=== PATIENT | female | born 1985 | race Caucasian/White ===

== ENCOUNTER → 2018-11-21 | Outpatient (CLI) | payer BC ==
--- NOTE | 2018-11-22 09:03 | MM ---
Reason for exam: clinical finding. Baseline mammogram. History: Patient is nulliparous. Silicone gel implants in both breasts, 2013. Physical Findings: Nurse Summary: 1.5 x 2cm nodule in the left breast at 7 o'clock (nurse ts). MG Diag Mamm Implant LT w CAD CC and MLO view(s) were taken of the left breast. The breast tissue is extremely dense which could obscure a lesion on mammography. Central, slightly lower outer left breast focal asymmetry is seen 1.5-2.5cm from nipple. These results were verbally communicated with the patient and result sheet given to the patient on 11/21/18. ASSESSMENT: Incomplete: need additional imaging evaluation, BI-RAD 0 RECOMMENDATION: Ultrasound of the left breast. (palpable lower outer quadrant, lower inner quadrant)
--- NOTE | 2018-11-22 09:04 | USB ---
Reason for exam: additional evaluation requested from abnormal screening. History: Patient is nulliparous. Silicone gel implants in both breasts, 2013. US Breast Limited LT Left limited breast ultrasound including focal area of concern, retroareolar and axilla demonstrates a 0.9 x 1.2 x 0.3cm cystic lesion at 3 o'clock and a 2.0 x 1.8 x 1.0cm mixed lesion at 6 o'clock, increased through transmission, likely complicated cyst. These results were verbally communicated with the patient and result sheet given to the patient on 11/21/18. ASSESSMENT: Probably benign, BI-RAD 3 RECOMMENDATION: Ultrasound of the left breast in 6 months.
== END | disposition home or self-care (01) ==
LOC: RADMAMWWP 13:54
PROVIDERS: ATTEND Family Medicine
DX: R92.8 Other abnormal and inconclusive findings on diagnostic imaging of breast (principal); Z98.82 Breast implant status
CPT/HCPCS: 77065

== ENCOUNTER 2020-07-12 22:10 | Inpatient (IN) | payer BC ==
[2020-07-12] MEDS ORDERED: LACTATED RINGERS 1,000 ML IV ONE (22:45)
[2020-07-12] MEDS ORDERED: CITRIC ACID-SODIUM CITRATE 15 ML CUP PO ONE (22:45)
--- NOTE | 2020-07-12 23:04 | US ---
EXAMINATION TYPE: US OB limited DATE OF EXAM: 07/12/2020 COMPARISON: NONE CLINICAL HISTORY: positions . For position only EXAM PERFORMED: Transabdominal (TA) GESTATIONAL AGE / DATING No growth performed on today?s study per ordering physician SURVEY PRESENTATION: Breech HEART RATE: 115 bpm RHYTHM: Normal Results given to L&D at time of exam IMPRESSION: Limited exam shows a breech presentation. heart rate is 1:15.
[2020-07-12 23:06] LABS: Basophils % (A) 1 %; Eosinophils # (A) 0.1 k/uL (0-0.7); Eosinophils % (A) 1 %; HCT 35.7 % (34.0-46.0); HGB 11.6 gm/dL (11.4-16.0); Lymphocytes # (A) 2.4 k/uL (1.0-4.8); Lymphocytes % (A) 32 %; MCH 31.4 pg (25.0-35.0); MCHC 32.5 g/dL (31.0-37.0); MCV 96.5 fL (80.0-100.0); Mean Platelet Volume 7.9; Monocytes # (A) 0.5 k/uL (0-1.0); Monocytes % (A) 6 %; Neutrophils # (A) 4.4 k/uL (1.3-7.7); Neutrophils % (A) 59 %; Platelet Count 244 k/uL (150-450); RDW 12.3 % (11.5-15.5); WBC 7.5 k/uL (3.8-10.6)
--- NOTE | 2020-07-12 23:19 | P.HPOB ---
History of Present Illness H&P Date: 07/12/20 Chief Complaint: 7-6/7 weeks, breech presentation, spontaneous rupture of me mbranes The patient is a 35-year-old 2 para 0010 admitted at 37-6/7 weeks as established by first trimester ultrasound. She is admitted with documented breech presentation by bedside ultrasound with documented spontaneous rupture of membranes with clear fluid. Her has otherwise been uncomplicated and group B strep status is negative. On labor and delivery, all signs are reass uring, category 1 heart rate tracing. Obstetrical history: 2 para 0010 with one early miscarriage. Current statistics are listed in history of present illness. EDC of 2020 was established by first trimester ultrasound. Laboratory workup demonstrates a blood type of A+ with a negative antibody screen. Rubella status is immune. The remainder of the laboratory workup was within normal limits. She did undergo trisomy testing which was negative. One hour Glucola was initially elevated but followed by a normal three-hour glucose tolerance test. Group B strep status is negative. Gynecologic history: Unremarkable with no history of any infections to include STDs. Review of Systems Review of systems is confined to history of present illness. Past Medical History History of Any Multi-Drug Resistant Organisms: None Reported Smoking Status: Never smoker Medications and Allergies Allergies Allergy/AdvReac Type Severity Reaction Status Date / Time No Known Allergies Allergy Verified 07/12/20 22:19 Exam Intake and Output 07/12/20 07/12/20 07/13/20 14:59 22:59 06:59 Other: Weight 77 kg In general, this is a well-developed well-nourished female in no acute distress. Her heart has a regular rhythm and rate without murmur. Her lungs are clear to auscultation bilaterally in all tarango. Her abdomen is gravid, nondistended, has normal active bowel sounds, soft, nontender, and without any palpable masses aside from uterine fundus. Her extremities are without any cyanosis, clubbing, or edema and are nontender to palpation bilaterally. Digital cervical examination performed by the nurses demonstrates her cervix to be 1 cm dilated, 80% effaced, with the presentation high in the pelvis. Presentation is confirmed by bedside ultrasound to be breech. Results Result Diagrams: 07/12/20 22:52 Abnormal Lab Results - Last 24 Hours (Table) 07/12/20 Range/Units 22:52 RBC 3.70 L (3.80-5.40) m/uL Assessment and Plan (1) Breech presentation Current Visit: Yes Status: Acute Code(s): O32.1XX0 - MATERNAL CARE FOR BREECH PRESENTATION, UNSP SNOMED Code(s): 6209817 (2) Spontaneous rupture of amniotic membranes Current Visit: Yes Status: Acute Code(s): MYA9584 - SNOMED Code(s): 640249153 (3) Term Current Visit: Yes Status: Acute Code(s): Z34.90 - ENCNTR FOR SUPRVSN OF NORMAL , UNSP, UNSP TRIMESTER SNOMED Code(s): 66855297 Plan: The patient is admitted for primary low-transverse section. The risks and complications the procedure have been discussed and she has understood and agreed to proceed.
[2020-07-12] MEDS ORDERED: OXYTOCIN 10 UNIT/ML 1 ML VIAL ONE (23:22)
[2020-07-12] MEDS ORDERED: KETOROLAC 15 MG/ML 1 ML VIAL ONE (23:22)
[2020-07-12] MEDS ORDERED: MORPHINE SULFATE (PF) 0.3 MG/0.3 ML SYR ONE (23:22)
[2020-07-13] MEDS ORDERED: KETOROLAC 15 MG/ML 1 ML VIAL IVP PRN (00:14)
[2020-07-13] MEDS ORDERED: HYDROcodone/APAP 5-325MG 1 EACH TAB PO PRN (00:14)
[2020-07-13] MEDS ORDERED: diphenhydrAMINE 50 MG/ML 1 ML VIAL IVP PRN ×2 (00:14)
[2020-07-13] MEDS ORDERED: diphenhydrAMINE 25 MG CAP PO PRN (00:14)
[2020-07-13] MEDS ORDERED: HYDROcodone/APAP 7.5-325MG 1 EACH TAB PO PRN (00:14)
[2020-07-13] MEDS ORDERED: NALOXONE 0.4 MG/ML 1 ML VIAL IV PRN (00:14)
[2020-07-13] MEDS ORDERED: METOCLOPRAMIDE 5 MG/ML 2 ML VIAL IVP PRN (00:14)
[2020-07-13] MEDS ORDERED: diphenhydrAMINE 50 MG CAP PO PRN (00:14)
[2020-07-13] MEDS ORDERED: ONDANSETRON 4 MG/2 ML VIAL IVP PRN (00:14)
[2020-07-13] MEDS ORDERED: ZOLPIDEM 5 MG TAB PO PRN (00:14)
[2020-07-13] MEDS ORDERED: ACETAMINOPHEN TAB 325 MG TAB PO PRN (00:14)
[2020-07-13] MEDS ORDERED: LANOLIN CREAM 5 GM TUBE TOPICAL PRN (00:14)
--- NOTE | 2020-07-13 00:14 | P.OP ---
Date of Procedure: 07/13/20 Preoperative Diagnosis: #1. 37-6/7 weeks, spontaneous rupture of membranes #2. Breech presentation Postoperative Diagnosis: Same Procedure(s) Performed: #1. Primary low-transverse section Anesthesia: spinal Surgeon: Nasim Nicholson Crushing Machine Operator #1: Yessenia Rodriguez Estimated Blood Loss (ml): 350 IV fluids (ml): 700 Urine output (ml): 200 Pathology: none sent Condition: stable Disposition: floor Operative Findings: Preoperative the, the patient was found to have documented spontaneous rupture of membranes for clear fluid and bedside ultrasound demonstrated continued breech presentation. As result, she was taken the operating room she was delivered of a viable 5 lbs. 14 oz. baby girl with Apgars of 9 at 1 minute and 9 at 5 is delivered in the iam breech presentation. The placenta was delivered manually, intact, and grossly normal with a grossly normal three-vessel cord. The uterus, tubes, and ovaries were entirely normal to inspection. Description of Procedure: The patient was prepped and draped in usual fashion after spinal anesthesia was administered by the anesthesiologist. A Pfannenstiel incision was made and extended into the abdominal cavity without difficulty. The bladder peritoneum was then from the intended site of incision and was left intact. A 2 cm incision was made in the transverse segment of the lower uterine segment to enter the uterus at which time no fluid was noted. The incision was extended in both directions using the bandage scissors. The iam breech presentation was found within the field and was delivered up and through the incision remainder of the infant delivered onto the field with standard breech maneuvers. The cord was doubly clamped, cut, and the passed for resuscitative measures with weight and Apgars as noted above. A segment of cord was doubly clamped, cut, and set aside should cord gases become necessary. The placenta was delivered manually and intact as noted above. The uterus was exteriorized and the interior cavity uterus swept of any remaining placental or membranous fragments. The margins of the incision were grasped with Velasquez clamps and the incision closed in 2 layers. The first layer was a running locking stitch of 0 chromic catgut followed by a running imbricating layer of 0 chromic catgut, each from margin to margin. The posterior cul-de-sac was suctioned using a guard and then sponged with a laparotomy sponge. The uterus was replaced within the abdominal cavity and the gutters swept of any remaining blood, fluid, or clot. The incision was reexamined and there was a point of bleeding the midpoint portion of the incision which could not be controlled with Bovie was made hemostatic with a single ynrutz-je-wvuco stitch of 0 chromic catgut. The remainder of the incision was noted be hemostatic. Any other small points of bleeding were made hemostatic with the Bovie. Once hemostasis was established, the parietal peritoneum was loosely reapproximated in the layer of muscles examined and made hemostatic with the Bovie. The fascia was closed with a single running stitch of 0 Vicryl proceeding from margin to margin. The subcutaneous tissues were irrigated, made hemostatic with the Bovie and not closed as they were less than 27 m in depth. The skin was reapproximated with a running subcuticular stitch of 4-0 Vicryl from margin to margin followed by half-inch Steri-Strips placed with Mastisol. Estimated blood loss for the entire case was approximately 350 mL. There were no complications. All sponge, instrument, needle counts were correct. The patient tolerated the procedure well and proceeded to the recovery room in stable condition. Both mother and are resting comfortably in recovery.
[2020-07-13] MEDS ORDERED: OXYTOCIN 30 UNITS/500 ML NS 30 UNIT in SALINE 1 500ML.BAG IV SCH (00:15)
[2020-07-13] MEDS: LACTATED RINGERS 1,000 ML IV SCH ×3 (01:37→05:23)
--- NOTE | 2020-07-13 06:52 | P.PN ---
Progress Note - Text Date: Time:643am 07/13/20 Patient is status post . Patient seen this morning with VAS score of 0. c/o of pruritus, no c/o nausea/vomiting, comfortable and doing well.
--- NOTE | 2020-07-13 08:17 | P.PN ---
Subjective Progress Note Date: 07/13/20 Principal diagnosis: Postoperative day #1 Slept well. Breast-feeding. No complaints. Objective - Vital Signs Vital signs: Vital Signs Temp 98.5 F 07/13/20 07:53 Pulse 79 07/13/20 07:53 Resp 16 07/13/20 07:53 BP 122/79 07/13/20 07:53 Pulse Ox 100 07/13/20 02:15 Intake & Output 07/12/20 07/13/20 07/13/20 18:59 06:59 18:59 Output Total 825 Balance -825 Weight 77 kg Output: Urine 475 Estimated Blood Loss 350 Other: Voiding Method Indwelling Catheter - Constitutional General appearance: Present: average body habitus, cooperative - EENT Eyes: Present: PERRLA ENT: Present: hearing grossly normal - Respiratory Respiratory: bilateral: CTA - Cardiovascular Rhythm: regular - Gastrointestinal General gastrointestinal: Present: normal bowel sounds - Genitourinary Genitourinary Comment(s): Incision clean and dry, intact, Steri-Strips applied. Fundus firm, midline, symmetric, 18 week size. - Integumentary Integumentary: Present: normal - Neurologic Neurologic: Present: CNII-XII intact - Musculoskeletal Musculoskeletal: Present: gait normal, strength equal bilaterally - Psychiatric Psychiatric: Present: A&O x's 3, appropriate affect, intact judgment & insight - Labs CBC & Chem 7: 07/12/20 22:52 Labs: Abnormal Lab Results - Last 24 Hours (Table) 07/12/20 Range/Units 22:52 RBC 3.70 L (3.80-5.40) m/uL Assessment and Plan Assessment: Doing well day #1 Plan: Continue postoperative care. Likely discharge home tomorrow. Advanced diet and activity. Time with Patient: Less than 30
[2020-07-13] MEDS: SENNOSIDES-DOCUSATE SODIUM 1 EACH TAB PO SCH ×2 (09:28→20:08)
[2020-07-13] MEDS: IBUPROFEN 600 MG TAB PO PRN ×2 (13:07→20:08)
[2020-07-14 06:55] LABS: Basophils % (A) 0 %; Eosinophils # (A) 0.1 k/uL (0-0.7); Eosinophils % (A) 1 %; HCT 30.8 % (34.0-46.0); HGB 10.5 gm/dL (11.4-16.0); Lymphocytes # (A) 1.6 k/uL (1.0-4.8); Lymphocytes % (A) 17 %; MCH 33.1 pg (25.0-35.0); MCV 97.4 fL (80.0-100.0); Mean Platelet Volume 7.7; Monocytes # (A) 0.5 k/uL (0-1.0); Monocytes % (A) 6 %; Neutrophils # (A) 7.3 k/uL (1.3-7.7); Neutrophils % (A) 76 %; Platelet Count 188 k/uL (150-450); RBC 3.16 m/uL (3.80-5.40); WBC 9.7 k/uL (3.8-10.6)
[2020-07-14 07:39] VITALS: BP 120/76; PULSE 78; RESP 18; TEMP 98.8
[2020-07-14] MEDS: SENNOSIDES-DOCUSATE SODIUM 1 EACH TAB PO SCH (07:43)
[2020-07-14] MEDS: IBUPROFEN 600 MG TAB PO PRN (07:43)
--- NOTE | 2020-07-14 07:50 | P.DS ---
Providers Date of admission: 07/12/20 22:37 Attending physician: Jacque Bell Primary care physician: Stated None Hospital Course: This is a 35-year-old female 2 para 0010 EDC 07/27/2020 at 3 37-6/7 weeks' gestation. Patient has a known breech and was scheduled for section in 1 week. However she presented with spontaneous amniorrhexis, clear fluid. Breech presentation was confirmed. Please see admitting history and physical for details. Group B strep cultures negative, rubella status immune, blood type B positive. Patient underwent a primary low transverse section giving to a liveborn female infant with scores of 9 and 9 at one and 5 minutes respectively. Infant weighed 5 lbs. 14 oz. or 2660 g. Estimate a blood loss 350 mL's. Trivascular cord. Please see dictated operative note for details. This morning the patient is doing well. She is voiding, ambulating, passing flatus without difficulty. Vital signs are stable and she is afebrile. Fundus is firm and in the midline, symmetric and 18 week size. Extremities are negative for edema. Incision is clean and dry, well approximated, with Steri- Strips applied. Breasts are not engorged. Breast-feeding is going well. Patient is judged to be in very good condition for discharge home. She will follow-up with me in the office in 2 weeks. I have reminded her no intercourse, tampons or douching. She will use opjq-may-bponjge Advil or Aleve, or Motrin as needed for pain. She will call with any fevers shakes or chills, foul smelling or copious lochia, with the passage of large blood clots, with any pain not alleviated by yolz-vhn-zjbozcr products, or indeed with any concerns. Assessment: Doing well post operative day number two Patient Condition at Discharge: Good Plan - Discharge Summary Discharge Rx Participant: No New Discharge Prescriptions: No Action Pnv No.95/Ferrous Fum/Folic AC [ Multivitamin Tablet] 1 each PO DAILY Discharge Medication List Pnv No.95/Ferrous Fum/Folic AC [ Multivitamin Tablet] 1 each PO DAILY 07/13/20 [History] Follow up Appointment(s)/Referral(s): Jacque Bell MD [STAFF PHYSICIAN] - 2 Weeks
[2020-07-14] MEDS: LACTATED RINGERS 1,000 ML IV SCH ×3 (09:29→09:30)
== END 2020-07-14 12:01 | disposition home or self-care (01) | DRG 788 ==
LOC: FBPOP 22:10 → 4FBP 22:37
PROVIDERS: ADMIT Obstetrics & Gynecology; ATTEND Obstetrics & Gynecology
PROC: 10D00Z1 Extraction of Products of Conception, Low, Open Approach (ICD-10-PCS; principal; 2020-07-13)
DX: O32.1XX0 Maternal care for breech presentation, not applicable or unspecified (principal); Z37.0 Single live birth; Z3A.37 37 weeks gestation of pregnancy
CPT/HCPCS: 59025; 76815; 84112; 85025; 86850; 86900; 86901; 99213

== ENCOUNTER → 2021-10-01 | Outpatient (CLI) | payer BC ==
--- NOTE | 2021-10-02 07:52 | US ---
EXAMINATION TYPE: Transabdominal DATE OF EXAM: 10/01/2021 4:29 PM COMPARISON: NONE CLINICAL HISTORY: Z36.87 UNCERTAIN LMP. confirm dates EXAM PERFORMED: Transabdominal (TA) EXAM MEASUREMENTS: GESTATIONAL AGE / DATING Physician Established: Not yet established Dates by LMP: (9 weeks/1 days) EDC: 05/05/22 Dates by First Scan: No previous this is first scan Dates by Current Scan for: (9 weeks/4 days) EDC: 05/02/22 MATERNAL ANATOMY Uterus: 10.4 x 6.6 x 7.5cm Right Ovary: 3.7 x 2.8 x 3.1cm Left Ovary: 2.2 x 1.6 x 1.6cm Post CDS / Adnexa: wnl Presence of free fluid: no Presence of corpus luteal cyst: cystic area right ovary = 3.0 x 2.1 x 3.0cm GESTATION / SURVEY CRL: 2.7cm (9 weeks/4 days) Yolk Sac (normal less than 6mm): 0.3cm Heart Rate: 160 bpm Rhythm: Normal IUP: Viable IUP Date of LMP: 07/29/21 Beta HcG (if available): Not available at this time IMPRESSION: Single viable intrauterine . Probable right ovarian corpus luteal cyst.
== END | disposition home or self-care (01) ==
LOC: RADUSWWP 16:11
PROVIDERS: ATTEND Obstetrics & Gynecology
DX: Z36.87 Encounter for antenatal screening for uncertain dates (principal); Z3A.09 9 weeks gestation of pregnancy
CPT/HCPCS: 76801

== ENCOUNTER 2022-04-14 09:42 | Inpatient (IN) | payer BC ==
[2022-04-14] MEDS ORDERED: CITRIC ACID-SODIUM CITRATE 15 ML CUP PO ONE (10:12)
[2022-04-14] MEDS: LACTATED RINGERS 1,000 ML IV SCH ×4 (10:30→21:28)
[2022-04-14 10:47] LABS: Basophils % (A) 1 %; Eosinophils % (A) 1 %; HCT 35.7 % (34.0-46.0); HGB 12.2 gm/dL (11.4-16.0); Lymphocytes # (A) 1.7 k/uL (1.0-4.8); Lymphocytes % (A) 23 %; MCHC 34.1 g/dL (31.0-37.0); MCV 96.8 fL (80.0-100.0); Mean Platelet Volume 9.3; Monocytes # (A) 0.4 k/uL (0-1.0); Monocytes % (A) 5 %; Neutrophils # (A) 5.1 k/uL (1.3-7.7); Neutrophils % (A) 68 %; Platelet Count 227 k/uL (150-450); RBC 3.69 m/uL (3.80-5.40); RDW 12.4 % (11.5-15.5); WBC 7.5 k/uL (3.8-10.6)
[2022-04-14] MEDS ORDERED: OXYTOCIN 30 UNITS/500 ML NS BAG IV ONE (12:01)
[2022-04-14] MEDS ORDERED: PHENYLEPHRINE-0.9% NACL SYG 1,000 MCG/10 ML SYRINGE ONE (12:01)
[2022-04-14] MEDS ORDERED: MORPHINE SULFATE (PF) 0.3 MG/0.3 ML SYR ONE (12:01)
[2022-04-14] MEDS ORDERED: NALBUPHINE 10 MG/ML (1 ML AMP) ONE (12:01)
[2022-04-14] MEDS ORDERED: KETOROLAC 15 MG/ML 1 ML VIAL ONE (12:01)
[2022-04-14] MEDS ORDERED: ONDANSETRON 4 MG/2 ML VIAL ONE (12:01)
--- NOTE | 2022-04-14 12:07 | P.HPOB ---
History of Present Illness H&P Date: 04/14/22 Chief Complaint: 37 week intrauterine , excessively thinned out lower uterine segme This is a 37-year-old female 2 para 101 EDC 05/05/2022 at 37 weeks gestation. Sonographically over the scar of the uterus there is noted to be a 3 mm myometrial layer. Upon recommendation of maternal medicine, patient is at a significantly increased risk for uterine rupture, augmentation is for C- section at 37 weeks. She is having mild uterine contractions at this time. Past medical history is significant for depression. Past surgical history bilateral breast implants, primary low transverse section 2020 for breech presentation. Current medications vitamins daily. ALLERGIES none known. Family history is unremarkable. Social history patient is , her Bala is present. She has never been a smoker, denies alcohol or drug use. history is significant for blood type B positive, rubella status immune. VDRL testing, urine culture, hepatitis B surface antigen, HIV testing, gonorrhea and chlamydia cultures, group B strep cultures all negative. One hour Glucola elevated, 3 hour GTT within normal limits. On exam patient is 5 foot 6 inches, 145 pounds, blood pressure 127/71. General physical exam is within normal limits. Fundal height is 38 cm, infant is vertex to Percy's maneuvers. Cervix is long thick and closed. Heart tones are consistent with reactive NST. Impression: 37 week intrauterine , excessively thinned out lower uterine segment at significant risk for uterine rupture, here for repeat low transverse section. Advanced maternal age. Plan: Patient is declining option for tubal ligation. Antibiotics have been given. We will proceed with low transverse section at this time. All risks and benefits discussed. Review of Systems Constitutional: Reports as per HPI Past Medical History Past Medical History: No Reported History History of Any Multi-Drug Resistant Organisms: None Reported Additional Past Surgical History / Comment(s): bilateral breast implants-2014 Past Anesthesia/Blood Transfusion Reactions: No Reported Reaction Past Psychological History: No Psychological Hx Reported Smoking Status: Never smoker Past Alcohol Use History: None Reported Past Drug Use History: None Reported - Past Family History Father Family Medical History: No Reported History Medications and Allergies Home Medications Medication Instructions Recorded Confirmed Type Pnv No.95/Ferrous Fum/Folic AC 1 each PO DAILY 07/13/20 04/14/22 History [ Multivitamin Tablet] Aspirin [Adult Low Dose Aspirin EC] 81 mg PO DAILY 04/14/22 04/14/22 History Allergies Allergy/AdvReac Type Severity Reaction Status Date / Time No Known Allergies Allergy Verified 07/12/20 22:19 Exam Vital Signs Temp Pulse Resp BP Pulse Ox 04/14/22 10:07 98.3 F 73 18 127/71 100 Intake and Output 04/13/22 04/14/22 04/14/22 22:59 06:59 14:59 Other: Weight 75 kg see dictation under HPI please Results Result Diagrams: 04/14/22 10:10 Abnormal Lab Results - Last 24 Hours (Table) 04/14/22 Range/Units 10:10 RBC 3.69 L (3.80-5.40) m/uL Assessment and Plan Assessment: 37 week intrauterine , excessively thinned out lower uterine segment, here for repeat section. Declining tubal ligation, advanced maternal age. Plan: For repeat low transverse section at this time. All questions answered. Time with Patient: Less than 30
[2022-04-14] MEDS ORDERED: NALOXONE 0.4 MG/ML 1 ML VIAL IV PRN ×2 (12:54→13:31)
[2022-04-14] MEDS ORDERED: diphenhydrAMINE 50 MG/ML 1 ML VIAL IVP PRN ×2 (12:54)
[2022-04-14] MEDS ORDERED: METOCLOPRAMIDE 5 MG/ML 2 ML VIAL IVP PRN (12:54)
[2022-04-14] MEDS ORDERED: diphenhydrAMINE 50 MG CAP PO PRN (12:54)
[2022-04-14] MEDS ORDERED: diphenhydrAMINE 25 MG CAP PO PRN (12:54)
[2022-04-14] MEDS ORDERED: ZOLPIDEM 5 MG TAB PO PRN (12:54)
[2022-04-14] MEDS ORDERED: ONDANSETRON 4 MG/2 ML VIAL IVP PRN (12:54)
--- NOTE | 2022-04-14 12:54 | P.OP ---
Date of Procedure: 04/14/22 Preoperative Diagnosis: 37 week intrauterine , previous section, 3 mm myometrium over the scar sonographically, advanced maternal age, maternal medicine recommendation for section at 37 weeks, patient at significantly increased risk for uterine rupture Postoperative Diagnosis: Same, liveborn male , nuchal cord 1, normal-appearing tubes and ovaries bilaterally Procedure(s) Performed: Repeat low transverse section Anesthesia: spinal Surgeon: Jacque Bell [employer] #1: Emily Rojo Estimated Blood Loss (ml): 271 IV fluids (ml): 800 Urine output (ml): 400 Pathology: none sent Condition: stable Disposition: PACU Indications for Procedure: Recommendation maternal- medicine, patient at increased risk for uterine rupture due to excessively thin myometrium at uterine scar Description of Procedure: Patient is brought to the operative suite where a spinal analgesia is administered without difficulty per the anesthesia staff. She's placed in the dorsal supine position with left lateral uterine displacement. Antibiotics given. The abdomen is prepped and draped in usual sterile fashion. The appropriate timeout is performed to assure proper patient and procedural identification. Tubal ligation is offered and declined. The analgesia is checked and noted to be working well. A repeat low transverse skin incision is made in this is carried down through the subcutaneous tissue which is only approximately 1 cm deep. Fascia is isolated, scored, extended bilaterally with curved Menard scissors. Peritoneum is next identified and incised, there is no bowel or bladder involvement. The bladder flap is created and the bladder is Well from the operative field and protected with R curved bladder blade. Repeat low transverse uterine incision is made in very quickly artificial amniorrhexis reveals clear fluid. The incision is extended bluntly. 's head is delivered in the occiput anterior position. There is a nuchal cord 1 that is reduced. Patient is officially delivered of a liveborn male at 1219 hrs. Umbilical cord is doubly clamped and ligated, he is handed to waiting nurses for evaluation where scores of 9 and 9 at one and 5 minutes respectively are given. Infant weighs 7 lbs. 7 oz. or 33 the placenta is expressed and delivered spontaneously, it is inspected and noted to be intact with trivascular cord at 1220 hrs. The uterus is then externalized and massaged. Oxytocin is given. The uterus is swept clean with a sterile sponge to avoid any retained products of conception. Uterus is closed in a two-step fashion, first layer running locking, second layer imbricated. Excessively thin lower uterine segment is appreciated. Hemostasis is excellent. Bilateral tubes and ovaries are inspected and noted to be normal. Abdomen is suctioned with suction on guard posterior to the uterus and the uterus is gently placed back into the abdominal cavity. Bilateral gutters are inspected and cleaned. Peritoneum is allowed to close by secondary intention. Fascia is closed in a running stitch of 0 Vicryl with over ligation in the midline. Subcutaneous tissue is irrigated, clean and dry. It is reapproximated with 2-0 Vicryl in a running stitch. 4-0 undyed Vicryl issues for final skin closure. Steri-Strips and Mastisol are applied to the wound. Uterus is massaged for a small amount of blood. Ga is noted to be draining clear urine. All sponge needle and instrument counts are correct. Patient is requesting circumcision for her infant son. She is brought back to the recovery room in excellent condition with stable vital signs including blood pressure 123/73, pulse 67, 100% O2 saturation.
--- NOTE | 2022-04-14 13:34 | P.ANPRN ---
Procedure Note - Anesthesia - Epidural/Spinal Spinal Date of Procedure: 04/14/22 Procedure Start Time: 12:06 Procedure Stop Time: 12:10 Location of Patient: OB Indication: Acute Post-Operative Pain, Requested by Surgeon Sedation Type: Sedate with meaningful contact maintained Preparation: Sterile Dressing Position: Sitting Catheter: None Needle Guage: 25 (25-gauge 3-1/2 inch spinal needle. ) Injectate: Other (1.6 mL of 0.65% Marcaine heavy mixed with 300 g of preservative-free morphine) Blood Aspirated: No Pain Paresthesia on Injection Noted: No Events: Uneventful and Well Tolerated
[2022-04-14] MEDS: ACETAMINOPHEN TAB 500 MG TAB PO SCH ×2 (15:22→21:27)
[2022-04-14] MEDS: IBUPROFEN 600 MG TAB PO SCH (18:39)
[2022-04-14] MEDS: SENNOSIDES-DOCUSATE SODIUM 1 EACH TAB PO SCH (21:27)
[2022-04-15] MEDS: IBUPROFEN 600 MG TAB PO SCH ×4 (02:34→23:20)
[2022-04-15] MEDS: LACTATED RINGERS 1,000 ML IV SCH ×4 (02:34→16:37)
[2022-04-15] MEDS: ACETAMINOPHEN TAB 500 MG TAB PO SCH ×4 (04:17→23:20)
--- NOTE | 2022-04-15 06:18 | P.PN ---
Subjective Progress Note Date: 04/15/22 Principal diagnosis: Postoperative day #1 Slept well. Positive flatus. Minimal lochia rubra. No complaints Objective - Vital Signs Vital signs: Vital Signs Temp 97.7 F 04/15/22 04:00 Pulse 74 04/15/22 04:00 Resp 16 04/15/22 04:00 BP 95/63 04/15/22 04:00 Pulse Ox 98 04/15/22 04:00 FiO2 Intake & Output 04/14/22 04/14/22 04/15/22 06:59 18:59 06:59 Output Total 1014 1000 Balance -1014 -1000 Weight 75 kg Output: Urine 300 1000 Uretheral (Ga) 400 Estimated Blood Loss 542 Output, Quantitative 172 Blood Loss Other: Voiding Method Indwelling Catheter - Constitutional General appearance: Present: average body habitus, cooperative - EENT Eyes: Present: PERRLA ENT: Present: hearing grossly normal - Respiratory Respiratory: bilateral: CTA - Cardiovascular Rhythm: regular - Gastrointestinal Gastrointestinal Comment(s): Incision clean and dry, intact, Steri-Strips applied. Fundus firm, midline, symmetric, 18 week size. - Integumentary Integumentary: Present: normal - Neurologic Neurologic: Present: CNII-XII intact - Musculoskeletal Musculoskeletal: Present: gait normal, strength equal bilaterally - Psychiatric Psychiatric: Present: A&O x's 3, appropriate affect, intact judgment & insight - Labs CBC & Chem 7: 04/14/22 10:10 Labs: Abnormal Lab Results - Last 24 Hours (Table) 04/14/22 Range/Units 10:10 RBC 3.69 L (3.80-5.40) m/uL Assessment and Plan Assessment: Doing well day #1 Plan: Continue postoperative care. Advanced diet and activity. Likely discharge home tomorrow. Time with Patient: Less than 30
[2022-04-15 07:09] LABS: Basophils % (A) 0 %; Eosinophils # (A) 0.1 k/uL (0-0.7); Eosinophils % (A) 1 %; HCT 33.3 % (34.0-46.0); HGB 11.2 gm/dL (11.4-16.0); Lymphocytes # (A) 1.6 k/uL (1.0-4.8); Lymphocytes % (A) 19 %; MCH 33.6 pg (25.0-35.0); MCHC 33.7 g/dL (31.0-37.0); MCV 99.6 fL (80.0-100.0); Mean Platelet Volume 9.1; Monocytes # (A) 0.5 k/uL (0-1.0); Monocytes % (A) 6 %; Neutrophils # (A) 6.1 k/uL (1.3-7.7); Neutrophils % (A) 72 %; Platelet Count 171 k/uL (150-450); RBC 3.34 m/uL (3.80-5.40); RDW 12.2 % (11.5-15.5); WBC 8.4 k/uL (3.8-10.6)
--- NOTE | 2022-04-15 08:06 | P.PN ---
Progress Note - Text Progress Note Date: 04/15/22 (0622) Anesthesia Postop day 1 Subjective: Status Post section with Duramorph. Patient seen and examined. Doing well without complaint. VAS E out of 10. No nausea vomiting or pruritus. Afebrile. Gross lower extremity strength intact. Spinal site intact without induration. Without apparent anesthetic complications. Objective: Vital signs reviewed Heart: Regular Rate Lungs: Good chest excursion Abdomen: Appears nondistended Assessment: Status post with Duramorph postop day 1 Plan: Continue current care with your medical management. Anticipated and the Duramorph around midnight tonight, you may see increased pain needs around this time.
[2022-04-15] MEDS: SENNOSIDES-DOCUSATE SODIUM 1 EACH TAB PO SCH ×2 (08:23→23:20)
[2022-04-16] MEDS: IBUPROFEN 600 MG TAB PO SCH ×3 (01:13→11:57)
[2022-04-16] MEDS: ACETAMINOPHEN TAB 500 MG TAB PO SCH ×3 (02:01→15:15)
[2022-04-16] MEDS: SENNOSIDES-DOCUSATE SODIUM 1 EACH TAB PO SCH (08:08)
[2022-04-16] MEDS: SIMETHICONE 80 MG CHEWABLE PO PRN ×2 (08:08→15:19)
--- NOTE | 2022-04-16 12:03 | P.DS ---
Providers Date of admission: 04/14/22 09:42 Expected date of discharge: 04/16/22 Attending physician: Jacque Bell Primary care physician: Stated None - Discharge Diagnosis(es) (1) 37 weeks gestation of Thin lower uterine segment at 3 mm over prior scar. Maternal medicine recommendation for delivery at 37 weeks secondary to increased risk of uterine rupture Current Visit: Yes Status: Acute (2) H/O section Current Visit: Yes Status: Acute (3) AMA (advanced maternal age) multigravida 35+ Current Visit: Yes Status: Acute Hospital Course: This is a 37-year-old G2 now P2 that presented to labor and delivery on 04/14 for repeat section. Patient was 37 weeks with an estimated due date of 05/05. Patient has a history of a prior . On ultrasound thinning of the prior uterine scar was appreciated at 3 mm. Upon recommendation of maternal medicine patient was at a significantly increased risk for uterine rupture, recommendation for at 37 weeks. Patient has been receiving routine care which has been essentially uncomplicated. Patient underwent repeat section without complication. Patient delivered a viable male weight of 7 lbs. 7 oz. at 1219. For full details on the please see the operative report. Patient's postoperative course has been uneventful. His postoperative day #2 she is ambulating and voiding without difficulty. She is tolerating a regular diet without nausea or vomiting. She states her pain is well-controlled and would like discharge home. Patient Condition at Discharge: Good Plan - Discharge Summary New Discharge Prescriptions: No Action Pnv No.95/Ferrous Fum/Folic AC [ Multivitamin Tablet] 1 each PO DAILY Aspirin [Adult Low Dose Aspirin EC] 81 mg PO DAILY Discharge Medication List Pnv No.95/Ferrous Fum/Folic AC [ Multivitamin Tablet] 1 each PO DAILY 07/13/20 [History] Aspirin [Adult Low Dose Aspirin EC] 81 mg PO DAILY 04/14/22 [History] Follow up Appointment(s)/Referral(s): Jacque Bell MD [STAFF PHYSICIAN] - 2 Weeks Patient Instructions/Handouts: (DC), (GEN) Activity/Diet/Wound Care/Special Instructions: Routine postoperative instructions are discussed with patient. Patient is asked to call the office in 2 weeks for routine postoperative check. [id number] ibuprofen and Tylenol as needed for pain. Should patient have any concerns prior to her two-week postoperative check she is urged to call the office. Discharge Disposition: HOME SELF-CARE
[2022-04-16] MEDS ORDERED: INFLUENZA VACC (6 MOS-64 YRS) 60 MCG/0.5 ML SYRINGE IM ONE (12:04)
[2022-04-16 12:43] VITALS: BP 105/61; PULSE 100; RESP 18; TEMP 98.1
== END 2022-04-16 15:30 | disposition home or self-care (01) | DRG 788 ==
LOC: 4FBP 09:42
PROVIDERS: ADMIT Obstetrics & Gynecology; ATTEND Obstetrics & Gynecology
PROC: 3E0R3BZ Introduction of Anesthetic Agent into Spinal Canal, Percutaneous Approach (ICD-10-PCS; 2022-04-14)
PROC: 10D00Z1 Extraction of Products of Conception, Low, Open Approach (ICD-10-PCS; principal; 2022-04-14 12:00)
DX: O34.211 Maternal care for low transverse scar from previous cesarean delivery (principal); O69.81X0 Labor and delivery complicated by cord around neck, without compression, not applicable or unspecified; Z37.0 Single live birth; Z3A.37 37 weeks gestation of pregnancy; Z98.82 Breast implant status; Z79.82 Long term (current) use of aspirin
CPT/HCPCS: 85025; 86850; 86900; 86901; 90686

== ENCOUNTER → 2023-09-01 | Outpatient (CLI) | payer OTHER ==
--- NOTE | 2023-09-01 09:03 | USB ---
Reason for Exam: Clinical finding. Patient History: Menarche at age 16. First Full-Term at age 36. Late child-bearing (after 30). 2014, Bilateral Implants. Risk Values: Lillie 5 year model risk: 0.5%. NCI Lifetime model risk: 12.6%. Technique: Method: Targeted. Prior Study Comparison: 11/21/2018 Left Diagnostic Mammogram, [facility]. Findings: The lateral section of the breast of the right breast, the axilla of the right breast and the retroareolar of the right breast were scanned. Targeted ultrasound to the patient's 10:00 palpable site including scanning of the subareolar region and axilla. Patient's underlying breast implant is noted. At the patient's palpable site, 10:00, 7 cm from the nipple, prominent rib with overlying musculature is noted. No solid or cystic lesion. Prominent but nonenlarged axillary lymph node measuring 1.5 x 1.1 x 0.5 cm. Uniform cortex measuring 2 mm. Overall Assessment: Benign, BI-RAD 2 Management: Screening Mammogram of both breasts in 1 year. Follow the 10:00 palpable site clinically to ensure stability. If any enlargement, the patient can be rescanned. By ultrasound, it seems to correspond to a prominent rib. Patient should continue monthly self breast exams. Results were given to the patient verbally at the time of exam. Electronically signed and approved by: Jose Elias Clinton M.D. Radiologist
--- NOTE | 2023-09-01 09:15 | MM ---
Reason for Exam: Clinical finding. Indicated Problems: Palpable abnormality of the right side for 1 Year(s). Patient History: Menarche at age 16. First Full-Term at age 36. Late child-bearing (after 30). 2014, Bilateral Implants. Last menstrual period: 08/18/2023 Risk Values: Lillie 5 year model risk: 0.5%. NCI Lifetime model risk: 12.6%. Tissue Density: The breasts are extremely dense, which lowers the sensitivity of mammography. Findings: Retropectoral silicone implant. Extremely dense breast tissues. Palpable marker placed on the lateral aspect of the right breast. No suspicious calcifications are seen. The patient's previous dense tissue has become even more dense due to current breast-feeding. Overall Assessment: Incomplete: need additional imaging evaluation, BI-RAD 0 Management: Diagnostic Breast Ultrasound of the right breast. Electronically signed and approved by: Jose Elias Clinton M.D. Radiologist
== END | disposition home or self-care (01) ==
LOC: RADMAMWWP 07:39
PROVIDERS: ATTEND Obstetrics & Gynecology
DX: N63.10 Unspecified lump in the right breast, unspecified quadrant (principal); N64.4 Mastodynia; Z98.82 Breast implant status
CPT/HCPCS: 77062; 77066

== ENCOUNTER → 2024-09-04 | Outpatient (CLI) | payer OTHER ==
--- NOTE | 2024-09-05 07:57 | MM ---
Reason for Exam: Screening (asymptomatic). Last screening mammogram was performed 12 month(s) ago. Patient History: Menarche at age 16. First Full-Term at age 36. Late child-bearing (after 30). Patient has history of breast feeding. 2013, Bilateral Implants. Currently . Last menstrual period: 08/13/2024 Risk Values: Lillie 5 year model risk: 0.6%. NCI Lifetime model risk: 12.6%. Prior Study Comparison: 11/21/2018 Left Diagnostic Mammogram, [facility]. 09/01/2023 Bilateral MG 3D diag mammo imp w/cad WILLAM, [facility]. Tissue Density: The breasts are extremely dense, which lowers the sensitivity of mammography. Findings: Analyzed By CAD. Bilateral breast implants are redemonstrated. There is no suspicious new group of microcalcifications or new suspicious mass in either breast. Overall Assessment: Benign, BI-RAD 2 Management: Screening Mammogram of both breasts at age 41. Some advised annual bilateral breast ultrasound surveillance in patients with background extreme dense tissue. Patient should continue monthly self-breast exams. A clinical breast exam by your physician is recommended on an annual basis. This exam should not preclude additional follow-up of suspicious palpable abnormalities. Note on Lillie scores and lifetime risk: 1. A Lillie score greater than 3% is considered moderate risk. If this is the case, consider specialist referral to assess eligibility for a risk reducing agent. 2. If overall lifetime risk for the development of breast cancer is 20% or higher, the patient may qualify for future screening with alternating mammogram and breast MRI. [facility], , 09/05/2024 7:55 AM. Electronically signed and approved by: Dewayne Schneider M.D.
== END | disposition home or self-care (01) ==
LOC: RADMAMWWP 15:11
PROVIDERS: ATTEND Obstetrics & Gynecology
DX: Z12.31 Encounter for screening mammogram for malignant neoplasm of breast (principal); R92.343 Mammographic extreme density, bilateral breasts
CPT/HCPCS: 77063; 77067